=== PATIENT | female | born 1975 | race Caucasian/White ===

== ENCOUNTER 2017-06-16 10:48 | Emergency (ER) | payer OTHER ==
[~2017-06-16] VITALS: Ht 165.1 cm; Wt 91.0 kg
[2017-06-16 10:55] VITALS: BP 134/90; PULSE 80; RESP 17; TEMP 98.2; O2SAT 98
[2017-06-16 11:05] VITALS: O2SAT 100
[2017-06-16] MEDS ORDERED: PROZ20CA11 PO (11:08)
[2017-06-16] MEDS ORDERED: SODIUM CHLOR 0.9% 1000 ML INJ 1,000 ML IV ONE (11:34)
[2017-06-16] MEDS ORDERED: PROCHLORPERAZINE INJ 10 MG/2 ML VIAL IVP ONE (11:45)
[2017-06-16] MEDS ORDERED: diphenhydrAMINE HCL 50 MG/ML VIAL IVP ONE (11:45)
[2017-06-16] MEDS ORDERED: KETOROLAC TROMETHAMINE 30 MG/ML (IVP) VIAL IVP ONE (11:45)
[2017-06-16 12:02] LABS: AUTOMATED NEUTROPHIL # 10.6 TH/MM3 (1.8-7.7); BASOPHIL # 0.1 TH/MM3 (0-0.2); BASOPHIL % 0.5 % (0.0-2.0); EOSINOPHIL # 0.7 TH/MM3 (0-0.4); EOSINOPHIL % 4.7 % (0.0-4.0); HEMO FLAGS DIFF FINAL; LYMPH % 18.3 % (9.0-44.0); LYMPHOCYTE # 2.7 TH/MM3 (1.0-4.8); MEAN CELL VOLUME 92.4 FL (80.0-100.0); MEAN CORPUSCULAR HEMOGLOBIN 30.9 PG (27.0-34.0); MEAN CORPUSCULAR HGB CONC 33.4 % (32.0-36.0); MONO % 5.5 % (0.0-8.0); PLATELET COUNT 404 TH/MM3 (150-450); RED BLOOD COUNT 4.66 MIL/MM3 (4.00-5.30); RED CELL DISTRIBUTION WIDTH 13.4 % (11.6-17.2)
[2017-06-16 12:22] LABS: BLOOD, URINE TRACE (NEG); COMMENT (UR) CULT NOT INDICATED; CULTURE IF INDICATED CULT NOT INDICATED; GLUCOSE,URINE NEG (NEG); KETONE, URINE NEG (NEG); MUCUS URINE FEW /lpf (OCC); NITRITE,URINE NEG (NEG); PH, URINE 6.5 (5.0-8.5); SQUAMOUS EPITHELIAL CELL URINE <1 /hpf (0-5)
[2017-06-16 12:23] LABS: URINE COLOR STRAW (YELLW/STRAW)
--- NOTE | 2017-06-16 12:29 | PD ---
HPI Chief Complaint: Headache Time Seen by Provider: 11:15 Travel History International Travel<30 days: No Contact w/Intl Traveler<30days: No Traveled to known affect area: No History of Present Illness HPI 41-year-old female that presents to the ED for evaluation of headache. Patient reports that yesterday she developed a headache all the sudden. Per patient he was severe and sharp. She took a Motrin which made her better. The patient has the day progressed he got better and she went to sleep. Per patient she woke up today and she went to work and during work she developed a headache again. Per patient she drank Excedrin with minimal relief. Per patient she does have some nausea and feels dizzy. She states having attending sensation to her toes and fingers. She denies any chest pain or shortness of breath. No fevers chills or sweats. No history of migraine headaches her headaches in the past. Denies any weakness. She is able to ambulate with minimal discomfort. She states that the headaches currently 9 out of 10. Per patient the Excedrin she took did not make the pain better. Denies any history of CVA or taking any meds other than Prozac. She does not take any anticoagulations. No head trauma. No head injury. She does tell me that she started taking Prozac 5 days ago and she's never had a side effect to it in the past. [facility]LY [facility] Past Medical History ?: Not LMP: 06/16/2017 Social History Alcohol Use: Yes (socially ) Tobacco Use: Yes (1 ppd ) Substance Use: Yes ([facility]) Allergies-Medications (Allergen,Severity, Reaction): Coded Allergies: Sulfa (Sulfonamide Antibiotics) (Verified Allergy, Severe, Hives, 06/16/17) Reported Meds & Prescriptions Reported Meds & Active Scripts Active Fioricet (Kpwmkyedjr-Dbkfdehjbteey-Kvfwojji) 50-300-40 Mg Cap 1 Cap PO Q6HR PRN Reported Prozac (Fluoxetine HCl) 20 Mg Cap 20 Mg PO DAILY Review of Systems Except as stated in HPI: all other systems reviewed are Neg Physical Exam Narrative GENERAL: SKIN: Warm and dry. No rashes noted. HEAD: Atraumatic. Normocephalic. EYES: Pupils equal and round 4 mm reactive to light and accommodation. No scleral icterus. No injection or drainage. ENT: No nasal bleeding or discharge. Mucous membranes pink and moist. Tongue is midline. No uvula deviation. No meningeal signs noted. NECK: Trachea midline. No JVD. CARDIOVASCULAR: Regular rate and rhythm. No murmurs, S3, S4. RESPIRATORY: No accessory muscle use. Clear to auscultation. Breath sounds equal bilaterally. GASTROINTESTINAL: Abdomen soft, non-tender, nondistended. Hepatic and splenic margins not palpable. MUSCULOSKELETAL: Extremities without clubbing, cyanosis, or edema. No obvious deformities. Full range of motion of the upper and lower extremities bilaterally. 2+ pulses bilaterally. Neurovascular intact bilaterally. Gait is normal. Sensation appears to be intact. NEUROLOGICAL: Awake and alert. No obvious cranial nerve deficits. Motor grossly within normal limits. Five out of 5 muscle strength in the arms and legs. Normal speech. PSYCHIATRIC: Appropriate mood and affect; insight and judgment normal. Data Data Last Documented VS Vital Signs Date Time Temp Pulse Resp B/P (MAP) Pulse Ox O2 Delivery O2 Flow Rate FiO2 06/16/17 16:20 64 16 110/66 (81) 98 Room Air 06/16/17 10:55 98.2 Orders Orders Complete Blood Count With Diff (06/16/17 11:34) Basic Metabolic Panel (Bmp) (06/16/17 11:34) Urinalysis - C+S If Indicated (06/16/17 11:34) Magnesium (Mg) (06/16/17 11:34) Thyroid Stimulating Hormone (06/16/17 11:34) Ct Brain W/O Iv Contrast(Rout) (06/16/17 11:34) Iv Access Insert/Monitor (06/16/17 11:34) Ecg Monitoring (06/16/17 11:34) Oximetry (06/16/17 11:34) Ed Urine Pregnancytest Poc (06/16/17 11:34) Ketorolac Inj (Toradol Inj) (06/16/17 11:45) Prochlorperazine Inj (Compazine Inj) (06/16/17 11:45) Diphenhydramine Inj (Benadryl Inj) (06/16/17 11:45) Sodium Chlor 0.9% 1000 Ml Inj (Ns 1000 M (06/16/17 11:34) Lumbar Puncture (06/16/17 ) Notify Radiology (06/16/17 13:39) Prothrombin Time / Inr (Pt) (06/16/17 13:39) Act Partial Throm Time (Ptt) (06/16/17 13:39) Csf Cell Count + Differential (06/16/17 13:39) Glucose, Csf (06/16/17 13:39) Total Protein, Csf (06/16/17 13:39) Csf Culture And Gram Stain (06/16/17 13:39) Morphine Inj (Morphine Inj) (06/16/17 14:00) Ondansetron Inj (Zofran Inj) (06/16/17 14:00) Cta Brain W Iv Contrast W 3d (06/16/17 ) Cta Neck W Iv Contrast W 3d (06/16/17 ) Vital Signs (Adult) .As directed (06/16/17 15:33) Activity Bed Rest (06/16/17 15:33) Notify Radiology (06/16/17 15:33) ^ Encourage Fluids (06/16/17 15:33) Anticoagulant Alert (06/16/17 15:33) Iohexol 350 Inj (Omnipaque 350 Inj) (06/16/17 13:56) Labs Laboratory Tests Test 06/16/17 11:35 06/16/17 11:45 06/16/17 14:15 06/16/17 15:23 White Blood Count 15.0 TH/MM3 Red Blood Count 4.66 MIL/MM3 Hemoglobin 14.4 GM/DL Hematocrit 43.0 % Mean Corpuscular Volume 92.4 FL Mean Corpuscular Hemoglobin 30.9 PG Mean Corpuscular Hemoglobin Concent 33.4 % Red Cell Distribution Width 13.4 % Platelet Count 404 TH/MM3 Mean Platelet Volume 9.2 FL Neutrophils (%) (Auto) 71.0 % Lymphocytes (%) (Auto) 18.3 % Monocytes (%) (Auto) 5.5 % Eosinophils (%) (Auto) 4.7 % Basophils (%) (Auto) 0.5 % Neutrophils # (Auto) 10.6 TH/MM3 Lymphocytes # (Auto) 2.7 TH/MM3 Monocytes # (Auto) 0.8 TH/MM3 Eosinophils # (Auto) 0.7 TH/MM3 Basophils # (Auto) 0.1 TH/MM3 CBC Comment DIFF FINAL Differential Comment Blood Urea Nitrogen 9 MG/DL Creatinine 0.82 MG/DL Random Glucose 96 MG/DL Calcium Level 8.9 MG/DL Magnesium Level 2.5 MG/DL Sodium Level 137 MEQ/L Potassium Level 4.2 MEQ/L Chloride Level 107 MEQ/L Carbon Dioxide Level 22.8 MEQ/L Anion Gap 7 MEQ/L Estimat Glomerular Filtration Rate 76 ML/MIN Thyroid Stimulating Hormone 3rd Gen 0.924 uIU/ML Urine Color STRAW Urine Turbidity CLEAR Urine pH 6.5 Urine Specific [place] 1.002 Urine Protein NEG mg/dL Urine Glucose (UA) NEG mg/dL Urine Ketones NEG mg/dL Urine Occult Blood TRACE Urine Nitrite NEG Urine Bilirubin NEG Urine Urobilinogen LESS THAN 2.0 MG/DL Urine Leukocyte Esterase NEG Urine Squamous Epithelial Cells <1 /hpf Urine Mucus FEW /lpf Microscopic Urinalysis Comment CULT NOT INDICATED Prothrombin Time 10.9 SEC Prothromb Time International Ratio 1.0 RATIO Activated Partial Thromboplast Time 30.8 SEC CSF Volume (Tube 1) 4.0 ML CSF Supernatant Color (tube 1) CLEAR CSF Gross Blood (Tube 1) 0 CSF Volume (Tube 2) 3.5 ML CSF Supernatant Color (tube 2) CLEAR CSF Gross Blood (Tube 2) 0 CSF Volume (Tube 3) 4.0 ML CSF Supernatant Color (tube 3) CLEAR CSF Gross Blood (Tube 3) 0 CSF Volume (Tube 4) 4.0 ML CSF Supernatant Color (tube 4) CLEAR CSF WBC (Tube 4) 5 /MM3 CSF RBC (Tube 4) 2 /MM3 CSF Neutrophils 0 % CSF Lymphocytes 82 % CSF Monocytes 18 % CSF Glucose 54 MG/DL CSF Total Protein 32.2 MG/DL MDM Medical Decision Making Medical Screen Exam Complete: Yes Emergency Medical Condition: Yes Medical Record Reviewed: Yes Interpretation(s) CBC & BMP Diagram 06/16/17 11:35 Calcium Level 8.9, Magnesium Level 2.5 coags WNL CSF showed no sign of acute disease other than 2 RBCs on the last vial Last Impressions Head CT 06/16/17 1134 Signed Impressions: Service Date/Time: May 13:17 - CONCLUSION: Normal examination. Arnold Crenshaw MD Neck CTA 06/16/17 0000 Signed Impressions: Service Date/Time: May 16:00 - CONCLUSION: 1. Negative examination. Joaquin Servin MD Lumbar Puncture Fluoroscopy 06/16/17 0000 Signed Impressions: Service Date/Time: May 15:15 - CONCLUSION: Uncomplicated fluoroscopically guided lumbar puncture with pressures as above. Joaquin Servin MD Head CTA 06/16/17 0000 Signed Impressions: Service Date/Time: May 16:02 - CONCLUSION: 1. Negative examination. Joaquin Servin MD Differential Diagnosis Migraine headache versus tension headache versus cluster headache versus ICH versus subarachnoid hemorrhage Narrative Course 42-year-old female that presents to the ED for evaluation of headache. Patient was properly examined and was found to have signs and symptoms consistent with headache. Concerning for more severe disease. My attending Dr. Sahni evaluated the patient with me and agrees with plan. Labs and imaging were ordered. Medications were started. Labs and imaging were essentially unremarkable. Patient still complaining of significant headache. My attending Dr. Sahni evaluated the patient and recommends LP to rule out subarachnoid as well as CTA. This was ordered. This was performed and showed no sign of subarachnoid hemorrhage. Patient's headache improved after the morphine. Patient feels better and wants to go home. This was discussed with attending who agrees with plan. Patient will be discharged home with prescription for Fioricet. I highly recommend that she takes Motrin or Tylenol first and if that doesn't work she can take this. She was told about the sedative effects of the medication. She was given note for work. Told to follow with neurologist. See ED for worsening symptoms. Follow with PCP. Diagnosis Primary Impression: Headache Qualified Codes: G44.209 - Tension-type headache, unspecified, not intractable Patient Instructions: General Instructions, Narcotic given in the ED Additional Instructions: Do no watch TV, bright lights or screens for the next 48 hours. Increase caffeine, but decrease alcohol for the next 48 hours to prevent headache. Drink plenty of fluids to keep hydrated. Follow up with PCP. See ED if worst. Do not drink or drive if you take fioricet. Med/Other Pt SpecificInfo: Prescription(s) given Scripts Qvtnxbbwmt-Dubsxphacpyob-Lvxjtzub (Fioricet) 50-300-40 Mg Cap 1 CAP PO Q6HR Y for HEADACHE, #14 CAP 0 Refills Prov: Stan Sahni MD 06/16/17 Disposition: 01 DISCHARGE HOME Condition: Stable Ishan Isaacs Jun 16, 2017 12:29
[2017-06-16 12:35] LABS: BICARBONATE 22.8 MEQ/L (21.0-32.0); MAGNESIUM 2.5 MG/DL (1.5-2.5); POTASSIUM 4.2 MEQ/L (3.5-5.1)
--- NOTE | 2017-06-16 13:30 | RADRPT ---
EXAM DATE/TIME: 06/16/2017 13:17 [facility] COMPARISON: No previous studies available for comparison. INDICATIONS : Headache RADIATION DOSE: 56.35 CTDIvol (mGy) MEDICAL HISTORY : None SURGICAL HISTORY : None. ENCOUNTER: Initial ACUITY: 1 day PAIN SCALE: 6/10 LOCATION: cranial TECHNIQUE: Multiple contiguous axial images were obtained of the head. Using automated exposure control and adj ustment of the mA and/or kV according to patient size, radiation dose was kept as low as reasonably a chievable to obtain optimal diagnostic quality images. DICOM format image data is available electro nically for review and comparison. FINDINGS: CEREBRUM: The ventricles are normal for age. No evidence of midline shift, mass lesion, hemorrhage or acute in farction. No extra-axial fluid collections are seen. POSTERIOR FOSSA: The cerebellum and brainstem are intact. The 4th ventricle is midline. The cerebellopontine angle i s unremarkable. EXTRACRANIAL: The visualized portion of the orbits is intact. SKULL: The calvaria is intact. No evidence of skull fracture. CONCLUSION: Normal examination. Arnold Crenshaw MD on June 16, 2017 at 13:27 Board Certified Radiologist. This report was verified electronically.
[2017-06-16] MEDS ORDERED: IOHEXOL 350 MG/ML 10 ML VIAL (for RAD DIAG) IVCONTRAST ONE (13:56)
[2017-06-16] MEDS ORDERED: ONDANSETRON HCL 4 MG/2 ML VIAL IV PUSH ONE (14:00)
[2017-06-16] MEDS ORDERED: MORPHINE SULFATE 4 MG/ML INJ IV PUSH ONE (14:00)
--- NOTE | 2017-06-16 14:02 | PD ---
Physical Exam Date Seen by Provider: Jun 16, 2017 Time Seen by Provider: 13:59 Narrative 42-year-old female came in to the emergency room with history of thunderclap headache that started last evening. Patient says that she was walking out from her work after clocking out going towards her car when the headache which was 10 out of 10 started. It was on the left side of her head. She took some Motrin and later that night the headache subsided a little bit. This morning when she woke up the headache was still there and when she went to work the headache started getting worse which made her dizzy and she just did not feel right. That's when she decided to come and be checked out. Patient has had occasional headaches but never like this. Patient is being seen by my PA and I' m supervising him. Workup shows leukocytosis. Patient denies any fever, chills or neck stiffness. Slight photophobia. Patient is not on any blood thinners. She is a smoker and drinks alcohol occasionally. She appeared to be moderate distress. Patient was given IV Compazine, IV fluid bolus, IV Toradol for the headache. Head CT is within normal limits. My suspicion is really high for subarachnoid hemorrhage. I discussed this with the patient and explained to her that she should get a spinal tap to rule this out. Patient is okay with that plan. She is currently rating her headache of 6 out of 10. Some IV morphine has been given to her for minimizing this. I discussed with the interventional radiologist Dr. Servin regarding lumbar puncture done by IR. Order has been put in. Awaiting for the lumbar puncture to be done and resulted. I discussed with the PA that if patient's headache continues to be intractable then she eventually might need to be admitted. Data Data Last Documented VS Vital Signs Date Time Temp Pulse Resp B/P (MAP) Pulse Ox O2 Delivery O2 Flow Rate FiO2 06/16/17 18:01 06/16/17 16:20 64 16 98 Room Air 06/16/17 10:55 98.2 Orders Orders Complete Blood Count With Diff (06/16/17 11:34) Basic Metabolic Panel (Bmp) (06/16/17 11:34) Urinalysis - C+S If Indicated (06/16/17 11:34) Magnesium (Mg) (06/16/17 11:34) Thyroid Stimulating Hormone (06/16/17 11:34) Ct Brain W/O Iv Contrast(Rout) (06/16/17 11:34) Iv Access Insert/Monitor (06/16/17 11:34) Ecg Monitoring (06/16/17 11:34) Oximetry (06/16/17 11:34) Ed Urine Pregnancytest Poc (06/16/17 11:34) Ketorolac Inj (Toradol Inj) (06/16/17 11:45) Prochlorperazine Inj (Compazine Inj) (06/16/17 11:45) Diphenhydramine Inj (Benadryl Inj) (06/16/17 11:45) Sodium Chlor 0.9% 1000 Ml Inj (Ns 1000 M (06/16/17 11:34) Lumbar Puncture (06/16/17 ) Notify Radiology (06/16/17 13:39) Prothrombin Time / Inr (Pt) (06/16/17 13:39) Act Partial Throm Time (Ptt) (06/16/17 13:39) Csf Cell Count + Differential (06/16/17 13:39) Glucose, Csf (06/16/17 13:39) Total Protein, Csf (06/16/17 13:39) Csf Culture And Gram Stain (06/16/17 13:39) Morphine Inj (Morphine Inj) (06/16/17 14:00) Ondansetron Inj (Zofran Inj) (06/16/17 14:00) Cta Brain W Iv Contrast W 3d (06/16/17 ) Cta Neck W Iv Contrast W 3d (06/16/17 ) Vital Signs (Adult) .As directed (06/16/17 15:33) Activity Bed Rest (06/16/17 15:33) Notify Radiology (06/16/17 15:33) ^ Encourage Fluids (06/16/17 15:33) Anticoagulant Alert (06/16/17 15:33) Iohexol 350 Inj (Omnipaque 350 Inj) (06/16/17 13:56) Labs Laboratory Tests Test 06/16/17 11:35 06/16/17 11:45 06/16/17 14:15 06/16/17 15:23 White Blood Count 15.0 TH/MM3 Red Blood Count 4.66 MIL/MM3 Hemoglobin 14.4 GM/DL Hematocrit 43.0 % Mean Corpuscular Volume 92.4 FL Mean Corpuscular Hemoglobin 30.9 PG Mean Corpuscular Hemoglobin Concent 33.4 % Red Cell Distribution Width 13.4 % Platelet Count 404 TH/MM3 Mean Platelet Volume 9.2 FL Neutrophils (%) (Auto) 71.0 % Lymphocytes (%) (Auto) 18.3 % Monocytes (%) (Auto) 5.5 % Eosinophils (%) (Auto) 4.7 % Basophils (%) (Auto) 0.5 % Neutrophils # (Auto) 10.6 TH/MM3 Lymphocytes # (Auto) 2.7 TH/MM3 Monocytes # (Auto) 0.8 TH/MM3 Eosinophils # (Auto) 0.7 TH/MM3 Basophils # (Auto) 0.1 TH/MM3 CBC Comment DIFF FINAL Differential Comment Blood Urea Nitrogen 9 MG/DL Creatinine 0.82 MG/DL Random Glucose 96 MG/DL Calcium Level 8.9 MG/DL Magnesium Level 2.5 MG/DL Sodium Level 137 MEQ/L Potassium Level 4.2 MEQ/L Chloride Level 107 MEQ/L Carbon Dioxide Level 22.8 MEQ/L Anion Gap 7 MEQ/L Estimat Glomerular Filtration Rate 76 ML/MIN Thyroid Stimulating Hormone 3rd Gen 0.924 uIU/ML Urine Color STRAW Urine Turbidity CLEAR Urine pH 6.5 Urine Specific [place] 1.002 Urine Protein NEG mg/dL Urine Glucose (UA) NEG mg/dL Urine Ketones NEG mg/dL Urine Occult Blood TRACE Urine Nitrite NEG Urine Bilirubin NEG Urine Urobilinogen LESS THAN 2.0 MG/DL Urine Leukocyte Esterase NEG Urine Squamous Epithelial Cells <1 /hpf Urine Mucus FEW /lpf Microscopic Urinalysis Comment CULT NOT INDICATED Prothrombin Time 10.9 SEC Prothromb Time International Ratio 1.0 RATIO Activated Partial Thromboplast Time 30.8 SEC CSF Volume (Tube 1) 4.0 ML CSF Supernatant Color (tube 1) CLEAR CSF Gross Blood (Tube 1) 0 CSF Volume (Tube 2) 3.5 ML CSF Supernatant Color (tube 2) CLEAR CSF Gross Blood (Tube 2) 0 CSF Volume (Tube 3) 4.0 ML CSF Supernatant Color (tube 3) CLEAR CSF Gross Blood (Tube 3) 0 CSF Volume (Tube 4) 4.0 ML CSF Supernatant Color (tube 4) CLEAR CSF WBC (Tube 4) 5 /MM3 CSF RBC (Tube 4) 2 /MM3 CSF Neutrophils 0 % CSF Lymphocytes 82 % CSF Monocytes 18 % CSF Glucose 54 MG/DL CSF Total Protein 32.2 MG/DL MDM Supervised Visit with PRASHANTH: Yes Scripts Ksouxsgjzg-Mqhjejjavbdka-Sqedzqon (Fioricet) 50-300-40 Mg Cap 1 CAP PO Q6HR Y for HEADACHE, #14 CAP 0 Refills Prov: Stan Sanhi MD 06/16/17 Stan Sahni MD Jun 16, 2017 14:02
[2017-06-16 14:52] LABS: APTT (PATIENT) 30.8 SEC (24.3-30.1); PROTHROMBIN TIME - PATIENT 10.9 SEC (9.8-11.6)
--- NOTE | 2017-06-16 15:36 | PD.RAD ---
Post Procedure Progress Note Pre Procedure Diagnosis: (1) Headache Post Procedure Diagnosis: (1) Headache Procedure Date: Jun 16, 2017 Supervising Radiologist: Joaquin Servin Estimated blood loss: None Anesthesia: Local Plan of Activity Patient to Unit: Other Patient Condition: Good Additional Comments: LP completed without difficulty. Single puncture at L3/L4 16cc of clear csf removed Full dictated report to follow. See PACS Report for procedural detail/treatment Joaquin Servin MD Jun 16, 2017 15:36
[2017-06-16 16:20] VITALS: BP 110/66; PULSE 64; RESP 16; O2SAT 98
--- NOTE | 2017-06-16 16:33 | RADRPT ---
EXAM DATE/TIME: 06/16/2017 15:15 [facility] COMPARISON: No previous studies available for comparison. INDICATIONS : Patient presents with acute severe headaches in need of lumbar puncture to evaluate for subarachnoid hematoma. MEDICAL HISTORY : Severe headaches SURGICAL HISTORY : n/a ENCOUNTER: Initial ACUITY: 1 day PAIN SCORE: 2/10 LOCATION: Headache LUMBAR PUNCTURE TIME: 15:23 hours FLUORO TIME: 1.2 minutes IMAGE SERIES: 0 ACCESS LEVEL: L3-4 OPENING PRESSURE: 22 cm of water CLOSING PRESSURE: Not requested. FLUID: 16 cc of clear CSF was collected and sent to the laboratory for analysis. PROCEDURE : 1. Fluoroscopic guided lumbar puncture. 2. Recording of opening pressure. The risks, benefits and alternatives to the procedure were explained and verbal and written consent w as obtained. The site was prepped in sterile fashion. Full sterile technique was used, including ca p, mask, sterile gloves and gown and a large sterile sheet. Hand hygiene and 2% chlorhexidine and/or betadine/alcohol prep was utilized per protocol for cutaneous antisepsis. The skin and subcutaneous tissues were infiltrated with local anesthetic solution. With fluoroscopic guidance the lumbar thecal sac was punctured at the above level described above and the opening pressure was recorded. The above described fluid was removed without difficulty. The patient tolerated the procedure well and there were no complications. CONCLUSION: Uncomplicated fluoroscopically guided lumbar puncture with pressures as above. Joaquin Servin MD on June 16, 2017 at 16:31 Board Certified Radiologist. This report was verified electronically.
[2017-06-16 17:05] LABS: GROSS BLOOD TUBE #1 0 (0); SUPERNATE COLOR TUBE #1 CLEAR (CLEAR)
[2017-06-16 17:06] LABS: GROSS BLOOD TUBE #2 0 (0); GROSS BLOOD TUBE #3 0 (0); SUPERNATE COLOR TUBE #2 CLEAR (CLEAR); SUPERNATE COLOR TUBE #3 CLEAR (CLEAR); VOLUME TUBE # 2 3.5 ML
[2017-06-16 17:07] LABS: SUPERNATE COLOR TUBE #4 CLEAR (CLEAR); WBC TUBE #4 5 /MM3 (0-10)
[2017-06-16 17:09] LABS: CSF LYMPHOCYTES 82 %; CSF NEUTROPHILS 0 %
[2017-06-16 17:10] LABS: CSF MONOCYTES 18 %
--- NOTE | 2017-06-16 17:19 | RADRPT ---
EXAM DATE/TIME: 06/16/2017 16:02 [facility] COMPARISON: CTA CAROTID ARTERIES W 3D RECON, June 16, 2017, 16:00. INDICATIONS : Headache since yesterday IV CONTRAST: 90 cc Omnipaque 350 (iohexol) IV ; Cumulative dose for multiple exams. RADIATION DOSE: 15.29 CTDIvol (mGy) ; Combined studies MEDICAL HISTORY : None SURGICAL HISTORY : None. ENCOUNTER: Initial ACUITY: 2 days PAIN SCALE: 9/10 LOCATION: cranial TECHNIQUE: Volumetric scanning was performed using a multi-row detector CT scanner. The data was post processed with a variety of visualization algorithms including full volume maximum intensity projection, multi -planar sliding thin slab reformation, curved planar reformation, and surface rendering techniques. Using automated exposure control and adjustment of the mA and/or kV according to patient size, radiat ion dose was kept as low as reasonably achievable to obtain optimal diagnostic quality images. DICO M format image data is available electronically for review and comparison. FINDINGS: There is excellent visualization of the major intracranial arteries out to the second-order branch ve ssels. There is no evidence for aneurysm, vessel truncation or stenosis, and no evidence for vascula r malformation. CONCLUSION: 1. Negative examination. Joaquin Servin MD on June 16, 2017 at 17:13 Board Certified Radiologist. This report was verified electronically.
--- NOTE | 2017-06-16 17:20 | RADRPT ---
EXAM DATE/TIME: 06/16/2017 16:00 [facility] COMPARISON: CT BRAIN W/O CONTRAST, June 16, 2017, 13:17. INDICATIONS : Headache since yesterday IV CONTRAST: 90 cc Omnipaque 350 (iohexol) IV ; Cumulative dose for multiple exams. RADIATION DOSE: 15.25 CTDIvol (mGy) ; Combined studies MEDICAL HISTORY : None SURGICAL HISTORY : None. ENCOUNTER: Initial ACUITY: 2 days PAIN SCALE: 9/10 LOCATION: cranial Elevated flow velocities and ICA/CCA ratios have been found to correlate with increased degrees of vessel stenosis, calculated as percentage of diameter relative to a normal segment of distal ICA/CCA. TECHNIQUE: Volumetric scanning was performed using a multirow detector CT scanner. The data was post processed with a variety of visualization algorithms including full-volume maximum intensity projection, multip lanar sliding thin-slab reformation, curved-planar reformation, and surface-rendering techniques. Us ing automated exposure control and adjustment of the mA and/or kV according to patient size, radiatio n dose was kept as low as reasonably achievable to obtain optimal diagnostic quality images. DICOM f ormat image data is available electronically for review and comparison. FINDINGS: AORTIC ARCH: There is a three-vessel origin of the great vessels from the aorta. No evidence of ostial narrowing. RIGHT CAROTID: The common carotid artery is intact. The carotid bulb has a normal configuration without ulceration o r narrowing. The internal carotid artery lumen is smooth without stenosis. The external carotid nba ry is intact. LEFT CAROTID: The common carotid artery is intact. The carotid bulb has a normal configuration without ulceration or narrowing. The internal carotid artery lumen is smooth without stenosis. The external carotid ar meliton is intact. VERTEBRALS: The vertebral arteries have a symmetric diameter. No stenotic lesions are seen. CONCLUSION: 1. Negative examination. Joaquin Servin MD on June 16, 2017 at 17:17 Board Certified Radiologist. This report was verified electronically.
[2017-06-16] MEDS ORDERED: BUTA1CAP PO (17:35)
== END 2017-06-16 18:02 | disposition home or self-care (01) ==
LOC: NEPE 10:48
DX: G44.209 Tension-type headache, unspecified, not intractable (principal); R11.0 Nausea; Z72.0 Tobacco use; R42 Dizziness and giddiness
CPT/HCPCS: 62270; 70450; 70496; 70498; 77003; 80048; 81001; 82945; 83735; 84157; 84443; 84703; 85025; 85610; 85730; 87070; 87205; 89051; 96361; 96374; 96375; 99285; J0780; J1200; J1885; J2270; J2405; J7030; Q9967